=== PATIENT | male | born 1955 | race Caucasian/White ===

== ENCOUNTER 2020-06-19 01:03 | Outpatient (CLI) | payer MEDICARE, SELFPAY ==
[2020-06-19 20:28] LABS: SARS-CoV-2 RNA PCR Negative
== END 2020-06-19 01:04 | disposition home or self-care (01) ==
LOC: ANHCOVIDDT 01:03
PROVIDERS: PCP Physician Assistant; Visit Provider Internal Medicine Gastroenterology
DX: Z01.812 Encounter for preprocedural laboratory examination (principal); Z20.828 Contact with and (suspected) exposure to other viral communicable diseases
CPT/HCPCS: 87635; C9803; U0003

== ENCOUNTER 2020-06-22 01:03 | Day surgery (SDC) | payer MEDICARE, SELFPAY ==
[2020-06-16 10:23] VITALS: BMI 36.3
[2020-06-22 07:58] VITALS: BP 142/94; PULSE 84; RESP 16; TEMP 36.4; O2SAT 99; BMI 36.1
[2020-06-22] MEDS: LACTATED RINGERS 1,000 ML 150 ML IV CONT (08:15)
--- NOTE | 2020-06-22 08:26 | WPDANESEPPF ---
Anes - Initial Pre Proc Eval Procedure: Operation Date: 06/22/20 09:00 Proposed Procedures p Screening Colonoscopy - Joe Lemons MD Date/Time: 06/22/20 08:26 Surgeon: Joe Lemons MD Pre Op Diagnosis: Neoplasm Screening Patient Data Age: 65 Gender: M Height: 6 ft 1 in Weight: 124.3 kg Last Vital Signs Temp 36.4 C L 06/22/20 07:58 Pulse 84 06/22/20 07:58 Resp 16 06/22/20 07:58 BP 142/94 H 06/22/20 07:58 Pulse Ox 99 06/22/20 07:58 Allergies Allergy/AdvReac Type Severity Reaction Status Date / Time No Known Allergies Allergy Verified 06/22/20 07:57 Home Medications Medication Instructions Recorded Confirmed Type candesartan 16 mg PO DAILY 06/16/20 06/22/20 History aspirin 81 mg PO DAILY 06/22/20 06/22/20 History fhqovrgw-wgr-cbuqu-vit K-lycop 1 tablet PO DAILY 06/22/20 06/22/20 History [Men's Multivitamin] omega-3 fatty acids-vitamin E 1 cap PO TID 06/22/20 06/22/20 History [Fish Oil] Patient hx anesthesia problems: none Family hx anesthesia problems: none PMFSH Past Medical History Medical History Hypertension Family History Family History Sibling Hypertension Patient's brother is in good health Family history of coronary artery disease Father Family history of Parkinson's disease Hypertension Family history of heart disease in male family member before age 55 Mother Family history of obesity Hypertension Family history of pancreatic cancer Patient's mother is Father Family history of Parkinson's disease Family history of heart disease in male family member before age 55 Mother Family history of pancreatic cancer Social History Social History Smoking status: Never smoker Alcohol intake: never Substance use: never Substance use type: does not use Living arrangements: with family Spiritual care concerns: No Anes - Eval Final PreProcedure Day of Procedure 06/22/20 08:26 Patient weight: obese Heart: regular rate and rhythm Lungs: clear to auscultation Airway: Mallampati scale class II Neurological: alert and oriented Last oral intake: >/= 8 hours ASA classification: II Emergent: no Anesthetic plan: proceed Anesthesia type and monitoring: general GIVS and standard monitoring Informed Consent: The patient's anesthetic plan and its attendant risks and benefits were discussed with the patient/family/POA. Questions were solicited and answers provided to the satisfaction of the patient/family/POA.
--- NOTE | 2020-06-22 08:48 | WPDGICN ---
Assessment and Plan Assessment and plan (1) Encounter for screening colonoscopy: Code(s): Z12.11 - Encounter for screening for malignant neoplasm of colon Status: Acute Assessment and Plan: Screening colonoscopy advised because of patient's age. This report follow separately GI Consult Note Consult date/time: 06/22/20 08:48 HPI: Charli Mak Sr. is a 65 year old male seen in evaluation at the request of SHAZIA Chavarria. Patient presents for screening colonoscopy. Current weight appetite bowel movements normal. Patient denies abdominal pain. Family history noncontributory. Review of Systems Review of Systems: All systems reviewed & are unremarkable except as noted in HPI and below PMFSH Past Medical History Medical History Hypertension Family History Family History Sibling Hypertension Patient's brother is in good health Family history of coronary artery disease Father Family history of Parkinson's disease Hypertension Family history of heart disease in male family member before age 55 Mother Family history of obesity Hypertension Family history of pancreatic cancer Patient's mother is Father Family history of Parkinson's disease Family history of heart disease in male family member before age 55 Mother Family history of pancreatic cancer Social History Social History Smoking status: Never smoker Alcohol intake: never Substance use: never Substance use type: does not use Living arrangements: with family Spiritual care concerns: No Meds Home Medications and Allergies Home Medications Medication Instructions Recorded Confirmed Type candesartan 16 mg PO DAILY 06/16/20 06/22/20 History aspirin 81 mg PO DAILY 06/22/20 06/22/20 History ovivfbuw-mmd-tzvxf-vit K-lycop 1 tablet PO DAILY 06/22/20 06/22/20 History [Men's Multivitamin] omega-3 fatty acids-vitamin E 1 cap PO TID 06/22/20 06/22/20 History [Fish Oil] Allergies Allergy/AdvReac Type Severity Reaction Status Date / Time No Known Allergies Allergy Verified 06/22/20 07:57 Vital Signs Vital Signs - 24 hr 06/22/20 07:58 Temperature 97.5 F L Pulse Rate 84 Respiratory Rate 16 Blood Pressure 142/94 H Pulse Oximetry 99 Exam Narrative: Exam Narrative: Physical exam reveals patient be alert. Vital signs stable. HEENT exam unremarkable. Lungs are clear to auscultation and percussion. Heart is without murmur or extra sounds. Abdominal exam bowel sounds are present soft nontender with no organomegaly. Digital external rectal exam normal.
[2020-06-22 09:44] VITALS: BP 113/72; PULSE 69; RESP 18; O2SAT 94
[2020-06-22 09:54] VITALS: BP 108/71; PULSE 70; RESP 18; O2SAT 96
[2020-06-22 10:04] VITALS: BP 119/66; PULSE 68; RESP 18; O2SAT 98
== END 2020-06-22 10:30 | disposition home or self-care (01) ==
PROVIDERS: PCP Physician Assistant; Visit Provider Internal Medicine Gastroenterology
PROC: 0DJD8ZZ Inspection of Lower Intestinal Tract, Via Natural or Artificial Opening Endoscopic (ICD-10-PCS; CPT 45378; principal; 2020-06-22 09:00)
DX: Z12.11 Encounter for screening for malignant neoplasm of colon (principal); I10 Essential (primary) hypertension; K57.30 Diverticulosis of large intestine without perforation or abscess without bleeding; K64.8 Other hemorrhoids
CPT/HCPCS: G0121; J2704; J7120

== ENCOUNTER → 2022-02-07 13:19 | Outpatient (REF) | payer MEDICARE, SELFPAY | LOC: ANHLAB 13:19 | PROVIDERS: PCP Physician Assistant; Visit Provider Nurse Practitioner | DX: L82.1 Other seborrheic keratosis (principal) | CPT/HCPCS: 88305 ==

== ENCOUNTER 2023-06-22 12:21 | Inpatient (IN) | payer MEDICARE, SELFPAY ==
[2023-06-22] VITALS (16 sets, daily range): BP systolic 118–198; BP diastolic 51–115; PULSE 53–95; RESP 14–22; TEMP 36.5–36.8; O2SAT 92–100
--- NOTE | 2023-06-22 12:36 | ECG_ITS ---
Measurements Intervals [place] Rate: 85 P: 51 CT: 212 QRS: -12 QRSD: 98 T: 73 QT: 367 QTc: 437 Interpretive Statements SINUS RHYTHM WITH FIRST DEGREE AV BLOCK LEFT ATRIAL ENLARGEMENT INCOMPLETE RIGHT BUNDLE BRANCH BLOCK CANNOT RULE OUT SEPTAL INFARCT, AGE INDETERMINATE INFERIOR ST ELEVATION MYOCARIAL INJURY- ACUTE RECIPROCAL ST DEPRESSION IN HIGH LATERAL LEADS ABNORMAL ECG NO PREVIOUS ECG AVAILABLE FOR COMPARISON Electronically Signed On 06-22-2023 12:59:50 MAINTENANCE GROUNDMAN by Jared Choi D.O.
--- NOTE | 2023-06-22 12:39 | PC.NURSE ---
vorb for Aspirin 324 and Nitro 0.[address] Aguilera
--- NOTE | 2023-06-22 12:40 | ED.CHESTPAIN ---
HPI - Chest Pain General Chief Complaint: Chest Pain Stated Complaint: tightness in chest Time Seen by Provider: 06/22/23 12:33 History of Present Illness HPI narrative: Patient is a 68-year-old male who presents ER with chest pain. Began at 1030 today. Pressure center of his chest with some mild discomfort in his back. Associate with left arm heaviness. Began while he was cleaning up around his home. No diaphoresis or nausea or vomiting. No history of NM in the past. Has not had a stress test since he was in his 40s. Patient does have history of hypertension. Today he has severe range blood pressures in the 190s. Had similar symptoms yesterday but they resolved on their own but when they returned today and did not go away he thought he should come to the ER. Related Data Home Medications Medication Instructions Recorded Confirmed candesartan 16 mg tablet 16 mg PO DAILY 06/16/20 06/22/23 aspirin 81 mg tablet 81 mg PO DAILY 06/22/20 06/22/23 rqeplkar-dmorlodn-lzhfi acid 400 1 tablet PO DAILY 06/22/20 06/22/23 mcg-vit K 20 mcg-lycop 300 mcg tablet (Men's Multivitamin) omega-3 fatty acids-vitamin E 1 cap PO BID 06/22/20 06/22/23 1,000 mg capsule levothyroxine 88 mcg tablet 88 mcg PO DAILY 06/22/23 06/22/23 Allergies Allergy/AdvReac Type Severity Reaction Status Date / Time No Known Allergies Allergy Verified 06/22/23 14:47 Review of Systems Review of Systems: All systems reviewed & are unremarkable except as noted in HPI and below Constitutional: Constitutional: Reports no additional constitutional complaints ENT: Reports system reviewed and no additional complaints, except as documented Cardiovascular: Cardiovascular: Reports chest pain, Denies rapid heart rate and Denies radiating jaw, neck or arm pain Comments: Left arm heaviness Respiratory: Respiratory: Denies cough, Denies dyspnea and Denies wheezing Gastrointestinal: Gastrointestinal: Reports no additional gastrointestinal complaints PMFSH Past Medical History Medical History Hypertension Overweight Surgical History Surgical History No pertinent past surgical history Family History Family History Sibling Hypertension Patient's brother is in good health Family history of coronary artery disease Father Family history of Parkinson's disease Hypertension Family history of heart disease in male family member before age 55 Mother Family history of obesity Hypertension Family history of pancreatic cancer Patient's mother is Father Family history of Parkinson's disease Family history of heart disease in male family member before age 55 Mother Family history of pancreatic cancer Social History Social History Smoking status: Never smoker Alcohol intake: never Substance use: never Substance use type: does not use Lack of Transportation: No Lack of Food: Never True Current Housing: I Have Housing Concerned About Future Housing: No Difficulty Paying Gas/Electric Bills: No Difficulty Paying for Meds: No Currently Unemployed: No Education: Bachelor's Degree Difficulty w/ Childcare or Family Care: No Living arrangements: with family Spiritual care concerns: No Exam Narrative: GENERAL: Well-appearing, well-nourished, and in no acute distress. HEAD: Normocephalic, atraumatic. ENT: Mucous membranes moist. NECK: Supple. CHEST: Clear to auscultation. No respiratory distress. HEART: Regular rate and rhythm. Normal peripheral pulses. ABDOMEN: Soft, nontender, nondistended. EXTREMITIES: Normal range of motion. No edema. SKIN: Warm, dry, no rash. NEURO: Alert and oriented x3. PSYCH: Normal mood and affect. Course Course Emergency Course: STEMI activated. Cardiolo
--- NOTE | 2023-06-22 12:40 | PC.NURSE ---
[address] [facility] [address] [facility]
--- NOTE | 2023-06-22 12:44 | ECG_ITS ---
Measurements Intervals [place] Rate: 95 P: 56 ME: 196 QRS: -19 QRSD: 100 T: 82 QT: 346 QTc: 437 Interpretive Statements SINUS RHYTHM POSSIBLE LEFT ATRIAL ENLARGEMENT INCOMPLETE RIGHT BUNDLE BRANCH BLOCK DELAYED PRECORDIAL R/S TRANSITION INFERIOR ST ELEVATION MYOCARDIAL INFARCT, ACTUE POSTERIOR INFARCT, ACUTE ABNORMAL ECG COMPARED TO ECG 06/22/2023 12:30:41 NO SIGNIFICANT CHANGES Electronically Signed On 06-22-2023 15:13:04 PRESCHOOL SUBSTITUTE TEACHER by Jared Choi D.O.
--- NOTE | 2023-06-22 12:51 | PC.NURSE ---
1250 [facility] called for STEMI Standby ETA 35-45 min
--- NOTE | 2023-06-22 13:01 | PC.NURSE ---
chemical lab technician team down @0415 to take pt up for cath. no further orders at this time.
[2023-06-22 13:05] LABS: Basophils Percent Auto 0.4 % (0.2-1.2); Eosinophils Absolute Auto 0.1 K/mm3 (0-0.3); Eosinophils Percent Auto 1.2 % (0-4.4); Hematocrit 54.8 % (42.0-52.0); Hemoglobin 18.7 g/dL (14.0-18.0); Immature Granulocyte Absolute 0.02 K/mm3 (0.00-0.031); Immature Granulocyte Percent A 0.3 % (0-0.5); Lymphocytes Absolute Auto 1.36 K/mm3 (0.9-3.2); Lymphocytes Percent Auto 17.8 % (18.3-44.2); Mean Corpuscular HGB Conc 34.1 g/dl (32-36); Mean Corpuscular Hemoglobin 29.9 pg (26-34); Mean Corpuscular Volume 87.5 fl (80-100); Mean Platelet Volume 9.1 fl (7.4-10.4); Monocytes Absolute Auto 0.5 K/mm3 (0.1-0.6); Monocytes Percent Auto 6.4 % (2.6-8.5); Neutrophils Absolute Auto 5.6 K/mm3 (1.3-6.7); Neutrophils Percent Auto 73.9 % (45.5-73.1); Platelet Count Result 199 k/mm3 (150-375); Red Blood Count 6.26 M/mm3 (4.6-6.20); Red Cell Distribution Width 13.4 % (11.5-14.5); White Blood Count 7.6 K/mm3 (4.5-10.0)
[2023-06-22 13:09] LABS: Partial Thromboplastin Time 24.6 SECONDS (22.3-36.8); Prothrombin Time 13.2 Seconds (11.1-14.7)
--- NOTE | 2023-06-22 14:10 | ECG_ITS ---
Measurements Intervals [place] Rate: 70 P: ID: 0 QRS: -24 QRSD: 84 T: -11 QT: 384 QTc: 415 Interpretive Statements SINUS RHYTHM WITH SECOND DEGREE AV BLOCK, TYPE I INCOMPLETE RIGHT BUNDLE BRANCH BLOCK EARLY PRECORDIAL R/S TRANSITION INFERIOR INFARCT, RECENT ABNORMAL ECG COMPARED TO ECG 06/22/2023 12:48:36 SECOND DEGREE AV BLOCK NOW PRESENT Electronically Signed On 06-22-2023 15:15:40 POST ACUTE CARE REGISTERED NURSE by Jared Choi D.O.
--- NOTE | 2023-06-22 14:13 | PM.IMHP ---
H&P: HPI History of Present Illness Date/Time: 06/22/23 14:13 Chief Complaint: Chest pain Narrative: This is a 68 year old male with hypertension who presented with chest pain. EKG showing inferior STEMI. Patient reports he had intermittent chest pain yesterday afternoon, which resolved and he was able to sleep through the night without recurrence of chest pain. However around 10AM to 10:30AM this morning, he had recurrent chest pressure that was constant. Radiation to back. Left arm heaviness. ER activated STEMI. Review of Systems Review of Systems: All systems reviewed & are unremarkable except as noted in HPI and below (HPI) [facility] Past Medical History Medical History (Updated 06/22/23 @ 14:15 by Humera Tenorio MD) Hypertension Overweight Surgical History Surgical History No pertinent past surgical history Family History Family History Sibling Hypertension Patient's brother is in good health Family history of coronary artery disease Father Family history of Parkinson's disease Hypertension Family history of heart disease in male family member before age 55 Mother Family history of obesity Hypertension Family history of pancreatic cancer Patient's mother is Father Family history of Parkinson's disease Family history of heart disease in male family member before age 55 Mother Family history of pancreatic cancer Social History Social History Smoking status: Never smoker Alcohol intake: never Substance use: never Substance use type: does not use Living arrangements: with family Spiritual care concerns: No Meds Home Medications and Allergies Home Medications Medication Instructions Recorded Confirmed Type candesartan 16 mg tablet 16 mg PO DAILY 06/16/20 06/22/20 History aspirin 81 mg tablet 81 mg PO DAILY 06/22/20 06/22/20 History rmbicyjj-jfwczest-mmwux acid 400 1 tablet PO DAILY 06/22/20 06/22/20 History mcg-vit K 20 mcg-lycop 300 mcg tablet (Men's Multivitamin) omega-3 fatty acids-vitamin E 1 cap PO TID 06/22/20 06/22/20 History 1,000 mg capsule Allergies Allergy/AdvReac Type Severity Reaction Status Date / Time No Known Allergies Allergy Verified 06/22/23 12:37 Vital Signs Vital Signs - 24 hr 06/22/23 12:33 06/22/23 12:48 Temperature 36.8 C Pulse Rate 88 95 Respiratory Rate 16 Blood Pressure 198/115 H Pulse Oximetry 99 Exam Const: General: no acute distress HENMT: Mouth: Yes moist mucous membranes Eyes: General: appearance normal, both eyes and all related structures Sclera: sclerae normal Neck: Neck: supple Resp: Effort & Inspection: normal respiratory effort Cardio: Rate: regular rate Rhythm: regular rhythm Skin: General skin exam: normal color Neuro: Speech: normal speech Psych: Mental Status: mental status grossly normal Affect: normal affect H&P: Results Labs Labs: Short CBC 06/22/23 Range/Units 12:46 WBC 7.6 (4.5-10.0) K/mm3 Hgb 18.7 H (14.0-18.0) g/dL Hct 54.8 H (42.0-52.0) % Plt Count 199 (150-375) k/mm3 Assessment and Plan Assessment and plan (1) ST elevation (STEMI) myocardial infarction: Code(s): I21.3 - ST elevation (STEMI) myocardial infarction of unspecified site Status: Acute Assessment and Plan: Acute inferior STEMI with 100% occlusion of proximal RCA. S/p successful primary PCI with TL x 1. Doing well post PCI. Loaded with ASA in the ED. Continue with ASA 81mg once daily indefinitely. Loaded with Brilinta 180mg x 1 in the ED. Continue with Brilinta 90mg BID for at least 1 year. High-intensity statin. Check lipid panel, A1c. Echocardiogram. Telemetry monitoring. Referral to cardiac rehab placed. (2) Hypertension: Code(s): I10 - Essential (primary) hypertension
--- NOTE | 2023-06-22 14:17 | WPDMODSED ---
Moderate Sedation Note-Pt Data Patient Data Diagnosis: STEMI Present Complaint: Chest pressure Procedure to be performed/Plan: Primary PCI Allergies Allergy/AdvReac Type Severity Reaction Status Date / Time No Known Allergies Allergy Verified 06/22/23 12:37 Home Medications Medication Instructions Recorded Confirmed Type candesartan 16 mg tablet 16 mg PO DAILY 06/16/20 06/22/20 History aspirin 81 mg tablet 81 mg PO DAILY 06/22/20 06/22/20 History gttmjshb-dumcpbaz-nnflc acid 400 1 tablet PO DAILY 06/22/20 06/22/20 History mcg-vit K 20 mcg-lycop 300 mcg tablet (Men's Multivitamin) omega-3 fatty acids-vitamin E 1 cap PO TID 06/22/20 06/22/20 History 1,000 mg capsule Current Medications: Active Medications Aspirin (Aspirin 81 Mg Enteric Tablet) 81 mg PO QAM MALINDA Atorvastatin Calcium (Atorvastatin 40 Mg Tablet) 80 mg PO DAILY MALINDA Candesartan Cilexetil (Candesartan Cilexetil 16 Mg Tablet) 16 mg PO DAILY MALINDA Sodium Chloride (Normal Saline Iv) 1,000 mls @ 125 mls/hr IV CONT .Q8H ONE Stop: 06/22/23 22:09 Perflutren Lipid Microsphere (Perflutren Lipid Microspheres 1.5 Ml Vial Diluted To 10 Ml Total Volume) 0 ml IV PUSH ONCE PRN; Protocol PRN Reason: adequate visualization Stop: 06/25/23 14:11 Ticagrelor (Ticagrelor 90 Mg Tablet) 90 mg PO Q12HR MALINDA Sedation/Anesthesia: No previous sedation/anesthesia problems (including family history). [facility] Past Medical History Medical History Hypertension Overweight Surgical History Surgical History No pertinent past surgical history Family History Family History Sibling Hypertension Patient's brother is in good health Family history of coronary artery disease Father Family history of Parkinson's disease Hypertension Family history of heart disease in male family member before age 55 Mother Family history of obesity Hypertension Family history of pancreatic cancer Patient's mother is Father Family history of Parkinson's disease Family history of heart disease in male family member before age 55 Mother Family history of pancreatic cancer Social History Social History Smoking status: Never smoker Alcohol intake: never Substance use: never Substance use type: does not use Living arrangements: with family Spiritual care concerns: No Mod Sed Physical Exam Physical Exam Pre Procedural Exam: Normal: Appearance, Lungs, Heart Rate, Heart Rhythm, Neuro Exam, Abdomen, Extremities and Skin Hours since solid foods: 0 Hours since liquid intake: 0 Mallampati Classification: class III Internal Medicine - PN: Obj Da Vital Signs Vital Signs: Vital Signs - 24 hr 06/22/23 12:33 06/22/23 12:48 Temperature 36.8 C Pulse Rate 88 95 Respiratory Rate 16 Blood Pressure 198/115 H Pulse Oximetry 99 Meds/Results Medications: Active Medications Generic Name Dose Route Start Last Admin Trade Name Freq PRN Reason Stop Dose Admin Aspirin 81 mg 06/23/23 09:00 Aspirin 81 Mg Enteric Tablet PO QAM [facility] Atorvastatin Calcium 80 mg 06/23/23 09:00 Atorvastatin 40 Mg Tablet PO DAILY [facility] Candesartan Cilexetil 16 mg 06/23/23 09:00 Candesartan Cilexetil 16 Mg Tablet PO DAILY [facility] Sodium Chloride 1,000 mls @ 125 mls/hr 06/22/23 14:10 Normal Saline Iv IV CONT 06/22/23 22:09 .Q8H ONE Perflutren Lipid Microsphere 0 ml 06/22/23 14:11 Perflutren Lipid Microspheres 1.5 Ml Vial Diluted To 10 Ml Total Volume IV PUSH 06/25/23 14:11 ONCE PRN adequate visualization Protocol Ticagrelor 90 mg 06/22/23 21:00 Ticagrelor 90 Mg Tablet PO Q12HR MALINDA Labs 06/22/23 12:46 06/22/23 12:46 Labs: Laboratory Results - last 24 hr
--- NOTE | 2023-06-22 14:18 | WPDCARDPROC ---
Cardiac Cath Procedure Note Date of procedure:: 06/22/23 Performing physician:: CATHETERIZATION LABORATORY REPORT Procedure Date: 06/22/2023 Egg Pasteurizer: Humera Tenorio M.D., [facility]? Referring Physician: Mirza Aguilera M.D. ? Anesthesia: Versed and Fentanyl were ordered and given in my presence at 13:05, procedure ended at 14:04. Supervision of nurse monitored moderate sedation with Versed and Fentanyl was provided for 59 minutes. Total of Versed 1mg and Fentanyl 50mcg were administered by the Food Science Professor RN Renetta Orlando. Pre-op Diagnosis: Inferior STEMI Post-op Diagnosis: 1. Acute 100% occlusion of proximal RCA s/p successful IVUS-guided PCI with TL x 1 2. Mild-moderate non-obstructive coronary artery disease of the left coronary system. Procedure(s): 1. Moderate sedation 2. Ultrasound-guided access of the right radial artery 3. Coronary angiography 4. IVUS of RCA 5. PCI of the proximal RCA with TL x 1 Access Site: Right radial artery Brief History and Clinical Indications: Patient is a 68 year old male with hypertension who is referred for emergent cardiac cath for inferior STEMI. All risks, benefits and alternatives to left heart catheterization with or without percutaneous coronary intervention was discussed at length with the patient. Risk of complications including but not limited to bleeding, infection, arrhythmia, stroke, worsening kidney function, blood loss, groin hematoma, limb loss, emergency coronary artery bypass grafting, and even were discussed with the patient and all questions were answered. The patient understood and wished to proceed. Time out called, patient name, date of , medical record number, allergies, procedure performed, identify Egg Pasteurizer, patient and staff member concurred with accurate data, procedure carried on. Findings: LEFT HEART CATHETERIZATION FINDINGS: 1. Left main: The left main coronary artery is widely patent without any significant obstructive disease. 2. Left anterior descending: The proximal LAD has mild 10-20% disease. Remainder of the LAD has luminal irregularities. The first diagonal branch is a large caliber vessel with 50-60% stenosis in its proximal portion. The second diagonal branch is a small caliber vessel with moderate ostial stenosis. 3. Left circumflex: The left circumflex has luminal irregularities. The OM branch has mild disease in its proximal portion. 4. Right coronary artery: The RCA is the dominant vessel. The RCA is 100% occluded in its proximal portion. Description of Procedure and PCI: Informed consent signed and placed in the chart. Patient transferred to label operator room. Prepped and draped in usual sterile fashion. 2% lidocaine injected subcutaneously in right wrist area. 22-gauge venipuncture catheter used to access the right radial artery under ultrasound guidance. 6-FR slender sheath placed in right radial artery. Nitroglycerine and Verapamil were given intraarterial through the sheath. Versacore wire advanced under fluoroscopy 5F Tig 4 diagnostic catheter engaged Left Main Coronary Artery. Multiple orthogonal angiogram obtained and reviewed Angiomax used for anticoagulation. 6F FR 4 guide catheter was used to intubate the RCA. Angio showed 100% occlusion of proximal RCA. 0.014 Dawson coronary wire was passed in to the distal RCA. The lesion was pre-dilated with a 2.5mm x 15mm balloon inflated to high LUKE. Multiple balloon inflations done. The lesion was again pre-dilated with a 3.0mm x 15mm balloon inflated to high LUKE. Multiple balloon inflations done. The lesion was again pre-dilated with a 3.0mm x 15mm Angiosculpt balloon inflated to nominal pressure. Multiple balloon inflations done. IVUS catheter advanced distal to the lesion. Reference measurements obtained. A 4.0mm x 18mm Booking Angeliro TL was successfully deployed into proximal RCA. Intracoronary NTG was administered Follow-up angiograms showed an excellent result Co
--- NOTE | 2023-06-22 14:27 | ADMGEN ---
This patient, Charli Mak Sr., was admitted to Intensive Care Unit-7. Patient/family oriented to hospital policies and general routines including ID bracelet, bed and alarms, visiting hours, pain management, procedures, bathroom and other care routines, personal items, smoking policy, room service/diet, and visiting hours. Information on how to activate the Rapid Response Team has been discussed. Patient/Family are encouraged to report perceived risks to care and to ask questions if they do not understand what they are told or what they should do.
[2023-06-22 14:35] LABS: Hemoglobin A1C 5.3 % (<5.7)
--- NOTE | 2023-06-22 14:38 | WPDCNINT ---
Assessment and Plan Assessment and plan (1) ST elevation (STEMI) myocardial infarction: Code(s): I21.3 - ST elevation (STEMI) myocardial infarction of unspecified site Status: Acute Assessment and Plan: 06/22: Patient presented the ED with chest pressure, radiated to left arm and back along with shortness of breath and nausea. 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 This critical care time included obtaining a history; examining the patient; pulse oximetry; ordering and review of studies; arranging urgent treatment with development of a management plan; evaluation of patient's response to treatment; frequent reassessment; and discussions with other providers. It was exclusive of separately billable procedures and treating other patients and teaching time. Please see Assessment and Plan section and the rest of the note for further information on patient assessment and treatment This dictation may have been done utilizing a voice recognition system. Attempts have been made to correct errors. However, there may be uncorrected grammatical, spelling, and recognitions errors present. Color Expert Consult Note Consult date: 06/22/23 Reason for consult: Inferior STEMI status post cardiac catheterization with acute 100% occlusion of the proximal RCA status post successful IVUS guided PCI with TL x1 HPI: Charli Castillo Aubree Marti. is a 68 year old male with past medical history of essential hypertension, hypothyroidism, presented the ED with chest pressure which had been intermittent since yesterday afternoon, he was able to sleep through the night without recurrence of his chest pain however around 10:00 a.m. to 10:30 a.m. on the morning of 06/22/2023 he has recurring chest pressure which was constant, the to left arm and back. He also has some nausea and shortness of breath. EMS was called and he was brought to the [facility], code STEMI was called, patient was taken to the cardiac lab technician. With his systolic blood pressures with the 190s to 200s. Patient did have a right radial approach cardiac catheterization with acute 100% occlusion of the proximal RCA status post successful IVUS guided PCI with TL x1. Blood pressures have improved. Patient was transferred to the ICU for further management Patient seen and examined the ICU, remains awake, alert, oriented x3. Pleasant gentleman. Denies any chest pressure, radiation, shortness of breath, nausea, vomiting and diaphoresis. Hemodynamically stable. Patient denies any tobacco, alcohol or illicit drug use. Later states that he drinks with a glass of wine once a month or maybe in 2 -3 months. Review of Systems Review of Systems: All systems reviewed & are unremarkable except as noted in HPI and below PMFSH Past Medical History Medical History Hypertension Overweight Surgical H
[2023-06-22 15:11] LABS: Alanine Aminotransferase 60 U/L (6-50); Alkaline Phosphatase 51 U/L (38-126); Anion Gap 13 mmol/L (8-16); Aspartate Amino Transferase 53 U/L (17-59); Bilirubin,Total 1.2 mg/dL (0.2-1.3); Blood Urea Nitrogen 29 mg/dL (9-20); Calcium 10.2 mg/dL (8.4-10.2); Carbon Dioxide 23 mmol/L (22-30); Chloride 102 mmol/L (98-107); Cholesterol 203 mg/dL (0-200); Estimated CRCL calculation 59 ml/min; Estimated Glomerular Filt Rate 50; Glucose 123 mg/dL (65-110); HDL Direct 37 mg/dL; Potassium 3.9 mmol/L (3.4-5.0); Sodium 138 mmol/L (137-145); Triglycerides 144 mg/dL (<150)
[2023-06-22 15:22] LABS: LDL Cholesterol Direct 131 mg/dL
[2023-06-22 15:32] LABS: Troponin I 0.966 ng/mL (0.000-0.034)
[2023-06-22] MEDS: SODIUM CHLORIDE 0.9% IV 1,000 ML 125 ML IV CONT (18:27)
[2023-06-22] MEDS: TICAGRELOR 90 MG TABLET PO (21:04)
--- NOTE | 2023-06-22 22:22 | PC.NURSE ---
Patient heart rate dropping into the 30's and sustaining as Second Degree Type I. Dr. Ferreira notified and requested RN to call cardiology. Cardiology notified and no medical intervention necessary due to type of rhythm identified. Will continue to monitor.
[2023-06-23] VITALS (10 sets, daily range): BP systolic 100–147; BP diastolic 60–99; PULSE 51–105; RESP 12–22; TEMP 36.4–36.6; O2SAT 92–97
--- NOTE | 2023-06-23 | ECHO_ITS ---
Patient Info Name: Charli Mak Age: 68 years : 1955 Gender: Male Ht: 73 in Wt: 246 lbs BSA: 2.43 m2 HR: 76 bpm BP: 147 / 96 mmHg Heart Rhythm: Sinus Rhythm Technical Quality: Fair Exam Date: 06/23/2023 7:50 AM Exam Location: Echo Lab Patient Status: Inpatient Admit Date: 06/22/2023 Staff Ordering Physician: Humera Tenorio MD (alice/valerie) Air Duct Mechanic: Bhavya Key RDCS Attending Provider: Alli Hammond MD Referring Physician: Jona TERRELL; Exam Type: CA echo dop color flow w con Study Info Indications - STEMI Complete two-dimensional, color flow and Doppler transthoracic echocardiogram is performed with contrast to opacify the left ventricle and to improve the deliniation of the left ventricle endocardial borders. Contrast/Agitated Saline Contrast/Ag. Saline: Definity Amount: 2.00 ml Administered By: Bhavya Key RDCS Existing IV Access: Yes IV Access Condition: patent with no signs of infiltration Summary 1. Normal, vigorous appearing left ventricular systolic function without significant wall motion abnormality. 2. Mildly sclerotic but not stenotic aortic valve. 3. Mild mitral annular calcification. Left Ventricle Left ventricular chamber dimension is normal. Left ventricular systolic function is normal, estimated at >70%. The left ventricular diastolic function is grade I diastolic dysfunction. Right Ventricle Right ventricular chamber dimension is normal. Left Atria Left atrial chamber dimension is normal. Right Atria Right atrial chamber dimension is normal. Aortic Valve The aortic valve is normal. Pulmonic Valve The pulmonic valve is not well visualized. Mitral Valve The mitral valve has normal leaflets. The mitral valve annulus is mildly calcified. Tricuspid Valve The tricuspid valve leaflets are normal. Pericardium/Pleural The pericardium appears normal. Aorta The aortic root size at the sinus of Valsalva is normal. Left Ventricular Outflow Tract Name Value Normal LVOT 2D LVOT Diameter 1.99 cm LVOT Doppler LVOT Peak Gradient 6 mmHg LVOT Mean Gradient 3 mmHg LVOT VTI 20.42 cm LVOT VTI/AV VTI Ratio 0.96 LVOT Stroke Volume 63.44 ml LVOT CO 5.40 l/min LVOT CI 2.22 L/min/m2 Pulmonic Valve Name Value Normal RVOT Doppler RVOT Peak Gradient 3 mmHg PV Doppler PV Peak Gradient 5 mmHg Mitral Valve Name Value Normal MV Doppler
[2023-06-23 03:32] LABS: Basophils Percent Auto 0.4 % (0.2-1.2); Eosinophils Absolute Auto 0.1 K/mm3 (0-0.3); Eosinophils Percent Auto 1.4 % (0-4.4); Hematocrit 53.3 % (42.0-52.0); Hemoglobin 17.7 g/dL (14.0-18.0); Immature Granulocyte Absolute 0.04 K/mm3 (0.00-0.031); Immature Granulocyte Percent A 0.5 % (0-0.5); Lymphocytes Absolute Auto 1.12 K/mm3 (0.9-3.2); Lymphocytes Percent Auto 13.9 % (18.3-44.2); Mean Corpuscular HGB Conc 33.2 g/dl (32-36); Mean Corpuscular Hemoglobin 29.7 pg (26-34); Mean Corpuscular Volume 89.4 fl (80-100); Monocytes Absolute Auto 0.6 K/mm3 (0.1-0.6); Monocytes Percent Auto 7.2 % (2.6-8.5); Neutrophils Absolute Auto 6.2 K/mm3 (1.3-6.7); Neutrophils Percent Auto 76.6 % (45.5-73.1); Platelet Count Result 196 k/mm3 (150-375); Red Blood Count 5.96 M/mm3 (4.6-6.20); Red Cell Distribution Width 13.6 % (11.5-14.5); White Blood Count 8.1 K/mm3 (4.5-10.0)
[2023-06-23 03:48] LABS: Alanine Aminotransferase 53 U/L (6-50); Albumin Level 4.1 g/dL (3.5-5.1); Alkaline Phosphatase 36 U/L (38-126); Anion Gap 7 mmol/L (8-16); Aspartate Amino Transferase 65 U/L (17-59); Blood Urea Nitrogen 21 mg/dL (9-20); Calcium 9.2 mg/dL (8.4-10.2); Carbon Dioxide 28 mmol/L (22-30); Chloride 104 mmol/L (98-107); Estimated CRCL calculation 59 ml/min; Estimated Glomerular Filt Rate 50; Glucose 94 mg/dL (65-110); Phosphorus 3.1 mg/dL (2.5-4.5); Potassium 4.1 mmol/L (3.4-5.0); Sodium 139 mmol/L (137-145)
[2023-06-23] MEDS: LEVOTHYROXINE SODIUM 88 MCG TABLET PO (06:32)
[2023-06-23] MEDS: PERFLUTREN LIPID MICROSPHERES 1.5 ML VIAL DILUTED TO 10 ML TOTAL VOLUME IV PUSH (08:26)
[2023-06-23] MEDS: CANDESARTAN CILEXETIL 16 MG TABLET PO (08:52)
[2023-06-23] MEDS: ATORVASTATIN 40 MG TABLET 80 MG PO (08:52)
[2023-06-23] MEDS: ASPIRIN 81 MG ENTERIC TABLET PO (08:52)
[2023-06-23] MEDS: TICAGRELOR 90 MG TABLET PO (08:52)
--- NOTE | 2023-06-23 09:08 | IVDEFINITY ---
Prior to administration of IV Definity the patient was educated on the risks and benefits of the imaging enhancing agent including potential adverse side effects. The patient verbalized understanding. Allergies were verified. No exclusion criteria were identified and at least one of the following inclusion criteria were met: 1) physician request, 2) patient technically difficult to image (per the [employer] Echocardi[employer] guidelines of two or more segments not discernable within the apical view), or 3) questionable left ventricular function. ?
--- NOTE | 2023-06-23 11:50 | WPDINTPN ---
Progress Note: A&P Assessment and Plan (1) ST elevation (STEMI) myocardial infarction: Code(s): I21.3 - ST elevation (STEMI) myocardial infarction of unspecified site Status: Acute Assessment and Plan: 06/22: Patient presented the ED with chest pressure, radiated to left arm and back along with shortness of breath and nausea. -Patient did have a right radial approach cardiac catheterization with acute 100% occlusion of the proximal RCA status post successful IVUS guided PCI with TL x1 -continue aspirin, atorvastatin, ticagrelor, candesartan -cardiology following the patient Patient did have an episode of second-degree type 1 block overnight with heart rate dipped in the 30s just once. And that after his heart rate has been slightly bradycardic in the 50s and 60s and this morning he has been in the 90s and 100s. 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 -blood pressures are stable (3) Hypothyroidism: Code(s): E03.9 - Hypothyroidism, unspecified Status: Acute Assessment and Plan: Continue levothyroxine Plan DVT prophylaxis: Status post cardiac catheterization Stress ulcer prophylaxis: Not indicated Nutrition: Heart healthy diet Code Status: Full code Critical Care Time Spent: 32 minutes Okay to transfer the ICU Due to a high probability of clinically significant, life threatening deterioration, the patient required my highest level of preparedness to intervene emergently and I personally spent this critical care time directly and personally managing the patient. This critical care time included obtaining a history; examining the patient; pulse oximetry; ordering and review of studies; arranging urgent treatment with development of a management plan; evaluation of patient's response to treatment; frequent reassessment; and discussions with other providers. It was exclusive of separately billable procedures and treating other patients and teaching time. Please see Assessment and Plan section and the rest of the note for further information on patient assessment and treatment This dictation may have been done utilizing a voice recognition system. Attempts have been made to correct errors. However, there may be uncorrected grammatical, spelling, and recognitions errors present. Subjective Date/time seen: 06/23/23 11:50 Interval history: Reason for consult: Inferior STEMI status post cardiac catheterization with acute 100% occlusion of the proximal RCA status post successful IVUS guided PCI with TL x1 06/23/2023: Patient seen and examined ICU, is awake, alert, oriented, pleasant. Denies any chest pressure/pain, shortness a breath, diaphoresis, nausea, vomiting, abdominal pain. Patient did have an episode of bradycardia 30s last night, the bedside RN did discuss with the turpentine farmer on-call. Patient has been in the 50s and 60s on and was tachycardic 100s. Most likely related to second-degree AV block type I. Urine output has been adequate, patient has been hemodynamically stable, afebrile. Right radial site without evidence of ecchymosis or hematoma Review of Systems Review of Systems: All systems reviewed & are unremarkable except as noted in HPI and below Exam Narrative: General: Pleasant gentleman in no acute distress HEENT:? Pupils equal and reactive, sclera is clear Neck:? Supple Respiratory:? Clear to auscultation bilaterally, no wheezing, no rales Cardiac:? S1-S2 is normal, normal rate and rhythm Abdomen:? Soft, nontender, nondistended, normoactive bowel sounds Extremities:? Right upper extremity cardiac catheterization site without evidence of ecchymosis or hematoma. Right radial pulse is dopp
--- NOTE | 2023-06-23 12:42 | PM.DS ---
DS: Admitting Diagnosis Discharge Date 06/23/2023 Admitting Diagnosis chest pain DS: Discharge Diagnosis Discharge Diagnosis (1) ST elevation (STEMI) myocardial infarction: Code(s): I21.3 - ST elevation (STEMI) myocardial infarction of unspecified site Status: Acute Assessment and Plan: Acute inferior STEMI with 100% occlusion of proximal RCA. S/p successful primary PCI with TL x 1. Doing well post PCI. Loaded with ASA in the ED. Continue with ASA 81mg once daily indefinitely. Loaded with Brilinta 180mg x 1 in the ED. Continue with Brilinta 90mg BID for at least 1 year. High-intensity statin. Had some intermittent 2nd degree AVB type I with no significant bradycardia post PCI. Will hold off on beta indy for now because of this Echocardiogram pending Referral to cardiac rehab placed. (2) Hypertension: Code(s): I10 - Essential (primary) hypertension Status: Acute Assessment and Plan: Initally hypertensive on arrival to ED with SBP in the 190s, however, normotensive after PCI. Resume home Candesartan. DS: Summary Hospital Course Hospital Course: Presented to hospital with chest pain and was emergently taken to the cardiac cardiac catheterization technologist where he was found to have a 100% blockage of the RCA. This was treated with placement of TL x 1. No post-procedural complications. Time Spent with Patient Time attestation: Total time spent providing and/or coordinating discharge services: 57 minutess Exam Const: General: no acute distress HENMT: Mouth: Yes moist mucous membranes Eyes: General: appearance normal, both eyes and all related structures Sclera: sclerae normal Neck: Neck: supple Resp: Effort & Inspection: normal respiratory effort Cardio: Rate: regular rate Rhythm: regular rhythm Skin: General skin exam: normal color Neuro: Speech: normal speech Psych: Mental Status: mental status grossly normal Affect: normal affect DS: Data Data Completed and Pending Labs on day of discharge: Labs from last 24 hours 06/23/23 06/22/23 06/22/23 03:15 18:38 15:32 WBC 8.1 RBC 5.96 Hgb 17.7 Hct 53.3 H MCV 89.4 MCH 29.7 MCHC 33.2 RDW 13.6 Plt Count 196 MPV 9.0 Immature Gran % (Auto) 0.5 Neut % (Auto) 76.6 H Lymph % (Auto) 13.9 L [place] % (Auto) 7.2 Eos % (Auto) 1.4 Baso % (Auto) 0.4 Lymph # (Auto) 1.12 [place] # (Auto) 0.6 Eos # (Auto) 0.1 Baso # (Auto) 0.0 Abs Immat Gran (auto) 0.04 H Absolute Neuts (auto) 6.2 Absolute Nucleated RBC 0.0 Nucleated RBC % 0.0 PT INR APTT Sodium 139 Potassium 4.1 Chloride 104 Carbon Dioxide 28 Anion Gap 7 L BUN 21 H Creatinine 1.40 H Estim Creat Clear Calc 59 Estimated GFR 50 L Glucose 94 Hemoglobin A1c Calcium 9.2 Phosphorus 3.1 Magnesium 2.0 Total Bilirubin 1.0 AST 65 H ALT 53 H Alkaline Phosphatase 36 L Troponin I 5.280 H* D 1.850 H* D Total Protein 7.0 Albumin 4.1 Triglycerides Cholesterol LDL Cholesterol Direct HDL Direct Blood Type A Negative Antibody Screen Negative 06/22/23 06/22/23 12:46 12:45 WBC 7.6 RBC 6.26 H Hgb 18.7 H Hct 54.8 H MCV 87.5 MCH 29.9 MCHC 34.1 RDW 13.4 Plt Count 199 MPV 9.1 Immature Gran % (Auto) 0.3 Neut % (Auto) 73.9 H Lymph % (Auto) 17.8 L [place] % (Auto) 6.4 Eos % (Auto) 1.2 Baso % (Auto) 0.4 Lymph # (Auto) 1.36 [place] # (Auto) 0.5 Eos # (Auto) 0.1 Baso # (Auto) 0.0 Abs Immat Gran (auto) 0.02 Absolute Neuts (auto) 5.6 Absolute Nucleated RBC 0.0 Nucleated RBC % 0.0 PT 13.2 INR 1.0 APTT 24.6 Sodium 138 Potassium 3.9 Chloride 102 Carbon Dioxide 23 Anion Gap 13 BUN 29 H Creatinine 1.40 H Estim Creat Clear Calc 59 Estimated GFR 50 L Glucose 123 H Hemoglobin A1c 5.3 Calcium 10.2 Phosphorus Magnesium Total Bilirubin 1.2 AST 53
== END 2023-06-23 15:55 | disposition home or self-care (01) | DRG 322 ==
LOC: ANHED 13:00 → ANHICU 06-23 09:32
PROVIDERS: Internal Medicine; Admitting Provider Internal Medicine; Emergency Provider Emergency Medicine; PCP Physician Assistant; Visit Provider Nurse Practitioner
PROC: 4A023N7 Measurement of Cardiac Sampling and Pressure, Left Heart, Percutaneous Approach (ICD-10-PCS; CPT 93454; principal; 2023-06-22 12:45)
PROC: 4A023N7 Measurement of Cardiac Sampling and Pressure, Left Heart, Percutaneous Approach (ICD-10-PCS; 2023-06-22 12:45)
PROC: 4A023N7 Measurement of Cardiac Sampling and Pressure, Left Heart, Percutaneous Approach (ICD-10-PCS; 2023-06-22 12:45)
DX: I21.19 ST elevation (STEMI) myocardial infarction involving other coronary artery of inferior wall (principal); I25.119 Atherosclerotic heart disease of native coronary artery with unspecified angina pectoris; I10 Essential (primary) hypertension; I44.1 Atrioventricular block, second degree; E03.9 Hypothyroidism, unspecified; Z28.21 Immunization not carried out because of patient refusal; Z79.82 Long term (current) use of aspirin
CPT/HCPCS: 36415; 80053; 80061; 83036; 83735; 84100; 84484; 85025; 85610; 85730; 86850; 86900; 86901; 92978; 93005; 93454; 99285; A9270; C1725; C1753; C1769; C1874; C1887; C1894; C8929; C9606; J0583; J1644; J2250; J2305; J3010; J7030; J7040; Q9957

== ENCOUNTER 2023-09-18 09:48 | Outpatient (CLI) | payer MEDICARE, SELFPAY ==
--- NOTE | 2023-10-09 16:20 | WPDSLEEPSTUD ---
Sleep Study Date of Study: 09/18/23 Ordering Provider: Hanane Chavez MD Interpreting Physician: Josephine Strickland DO Sleep Study Type: Polysomnogram Height: 1.85 m Weight: 113.398 kg Body Mass Index: 33.0 Neck Circumference (inches): 16 [place]: 7 Reason for Sleep Study Heart arrhythmia seen on Holter monitor. 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 The patient denies awakening from sleep short of breath. He denies awakening at night with heartburn, belching or cough. He rarely snores and is never loud enough others complain. He denies having trouble sleeping when he has a cold. He denies waking up gasping for air throughout the night. He denies having breathing problems at night observed by himself or others. He denies sweating excessively at night. He denies having heart palpitations or irregular heartbeats during the night. He rarely falls asleep during the day and never falls asleep while driving. He denies sleep paralysis and cataplexy. He denies having trouble at school or work due to sleepiness. He rarely experiences vivid dreamlike scenes upon awakening or falling asleep. He denies feeling afraid of going to sleep. He rarely has nightmares. He occasionally remembers his dreams. He rarely has thoughts racing through his mind. He denies feeling sad or depressed. He rarely has anxiety. He denies having muscular tension. He denies noticing parts of his body jerk. He rarely kicks during the night. He rarely has crawling and aching feelings in his legs and rarely has leg pain during the night. He rarely grinds his teeth during sleep but never awakens with morning jaw pain. He is rarely bothered by pain during the day but never awakened by pain during the night. He rarely wakes up feeling stiff in the morning. He denies waking up with sore or achy muscles. He denies waking up with pain in the neck, spine and other joints. He goes to bed at 10:00 p.m. on both weekdays and weekends. It takes him less than 10 minutes to fall asleep. He wakes up twice throughout the night to urinate and is able to fall back asleep within 10 minutes. He wakes up at 6:30 a.m. on both weekdays and weekends. He typically gets 8 hours of sleep per night. He does not stay in bed after waking up in the morning. He currently lives with his . He denies consuming any caffeinated beverages within 2 hours of bedtime. He denies engaging in physical exercise before bedtime. He will read watch television before falling asleep. He denies taking naps in afternoon or the evening. He consumes 3 cups of caffeinated beverage per day. He denies tobacco, alcohol and recreational drug use. [facility] Past Medical History Medical History Hypertension Overweight Surgical History Surgical History No pertinent past surgical history Family History Family History Sibling Patient's brother is in good health Family history of coronary artery disease Hypertension Father Family history of heart disease in male family member before age 55 Family history of Parkinson's disease Hypertension Mother Patient's mother is Family history of obesity Family history of pancreatic cancer Hypertension Father Family history of heart disease in male family member before age 55 Family history of Parkinson's disease Mother Family history of pancreatic cancer Son Pancreatic cancer Social History Social History Smoking status: Never smoker Alcohol intake: never Substance use:
[2023-10-09 16:22] VITALS: BMI 33.0
== END 2023-09-19 06:38 | disposition home or self-care (01) ==
LOC: ANHCSM 09:49
PROVIDERS: PCP Physician Assistant; Visit Provider Internal Medicine Critical Care Medicine
DX: G47.10 Hypersomnia, unspecified (principal); I49.9 Cardiac arrhythmia, unspecified
CPT/HCPCS: 95811

== ENCOUNTER 2023-11-15 08:30 | Outpatient (RCR) | payer MEDICARE, SELFPAY | END 2023-11-15 10:00 | disposition home or self-care (01) | LOC: ANHCPREHAB 08:30 | PROVIDERS: PCP Physician Assistant; Visit Provider Internal Medicine | DX: Z95.5 Presence of coronary angioplasty implant and graft (principal) | CPT/HCPCS: 93798 ==

== ENCOUNTER 2024-05-23 15:36 | Emergency (ER) | payer MEDICARE, SELFPAY ==
--- NOTE | ~2024-05-23 | CT_ITS ---
EXAMINATION: CT brain wo con DATE: 05/23/2024 16:03 INDICATION: Memory lapse. Cerebrovascular accident. TECHNIQUE: Computed tomography (CT) of the head was performed without intravenous contrast. The mA wa s adjusted according to patient size. Iterative reconstruction technique was employed. The dose-lengt h product was 681.00 mGy-cm. COMPARISON: None FINDINGS: There are scattered areas of low attenuation in the cerebral white matter, which is within normal limits for the patient's age. There is no intracranial hemorrhage, acute infarction, or abnorm al intracranial mass lesion. The ventricles are normal in size. There is mild mucosal thickening para nasal sinuses. The mastoid air cells are normal. The orbits are normal. IMPRESSION: 1. Normal aging brain. I called this result to Dr. Hoyt. Reviewed, dictated and finalized at location A.
--- NOTE | ~2024-05-23 | XR_ITS ---
EXAMINATION: XR chest 1V portable DATE: 05/23/2024 16:14 INDICATION: Cerebrovascular accident. TECHNIQUE: A single frontal view of the chest was obtained. COMPARISON: None. FINDINGS: There is mild atelectasis in left lower lung zone. No pleural effusion or pneumothorax. The heart size is normal. IMPRESSION: 1. Mild atelectasis in left lower lung zone. Reviewed, dictated and finalized at location A.
--- NOTE | ~2024-05-23 | CT_ITS ---
EXAMINATION: CTA brain carotid DATE: 05/23/2024 16:06 INDICATION: Memory loss. Cerebrovascular accident. TECHNIQUE: Computed tomographic angiography (CTA) of the head was performed with 100 mL Omnipaque-350 intravenous contrast. CTA of the neck was performed with intravenous contrast. Automated exposure co ntrol and iterative reconstruction technique were employed. The dose-length product was 1098.00 mGy-c m. Maximum intensity projection and volume rendered 3D-reconstructions were created by the technologi st on a separate workstation. COMPARISON: Head CT 05/23/2024 FINDINGS: HEAD CTA: There are scattered areas of low attenuation in the cerebral white matter, which is within normal limits for the patient's age. There is no intracranial hemorrhage, acute infarction, or abnorm al intracranial mass lesion. The ventricles are normal in size. The orbits are normal. There is mild mucosal thickening in the paranasal sinuses. The mastoid air cells are normal. The vertebral arteries are codominant. There is no significant stenosis of basilar artery or the posterior cerebral arterie s. There is no significant stenosis of the intracranial internal carotid arteries or anterior or midd le cerebral arteries. Anterior communicating artery is normal. The posterior communicating arteries a re normal. There is no aneurysm. NECK CTA: There are no pathologically enlarged lymph nodes. There is no significant stenosis of the v ertebral arteries. There is plaque in the proximal internal carotid. There is 0% stenosis of the prox imal right internal carotid artery relative to normal distal artery lumen diameter (NASCET criteria). There is 0% stenosis of the proximal left internal carotid artery relative to normal distal artery l umen diameter. There are nodules in the thyroid measuring up to 5 mm, likely not clinically significa nt. There is severe cervical spondylosis. IMPRESSION: 1. Normal aging brain. 2. No aneurysm or significant intracranial arterial stenosis. 3. 0% stenosis of the proximal internal carotid arteries relative to normal distal artery lumen diame ters (NASCET criteria). Reviewed, dictated and finalized at location A. IMPRESSION: 1. Normal aging brain. 2. No aneurysm or significant intracranial arterial stenosis. 3. 0% stenosis of the proximal internal carotid arteries relative to normal dis eder artery lumen diameters (NASCET criteria).
[2024-05-23 15:43] VITALS: BP 138/91; PULSE 95; RESP 14; TEMP 36.4; O2SAT 95
--- NOTE | 2024-05-23 15:53 | ECG_ITS ---
Test Date: 2024-05-23 17:15:58 Measurements Intervals [place] Rate: 106 P: 0 [place]: 0 QRS: -27 QRSD: 77 T: 13 QT: 404 QTc: 538 Interpretive Statements SINUS RHYTHM WITH FIRST-DEGREE AV BLOCK BORDERLINE LEFT AXIS DEVIATION [QRS AXIS < -20] POSSIBLE RIGHT VENTRICULAR CONDUCTION DELAY [RSR (QR) IN V1/V2] NONSPECIFIC T-WAVE ABNORMALITY ABNORMAL ECG No previous ECG available for comparison Electronically Signed On 05-24-2024 12:28:47 CDT by Renzo Maher M.D.
[2024-05-23 15:56] LABS: Glucose Point of Care 119 mg/dl (65-105)
[2024-05-23 16:01] LABS: Estimated CRCL calculation 55 ml/min; Estimated Glomerular Filt Rate 46
--- NOTE | 2024-05-23 16:09 | ED.NEUROSD ---
HPI - Neuro Symptoms/Deficit General Chief Complaint: Neuro Symptoms/Deficit Stated Complaint: LKW 1400 Time Seen by Provider: 05/23/24 15:49 History of Present Illness HPI Narrative: Patient went to his normal morning appointment for testosterone shot, came home, around 2:00 p.m., got upset and told his that he missed his appointment. Reiterated this two separate times. No difficulty with speech, numbness or weakness. Has now recovered his memory. Related Data Home Medications Medication Instructions Recorded Confirmed candesartan 16 mg tablet 16 mg PO DAILY 06/16/20 11/08/23 aspirin 81 mg tablet 81 mg PO DAILY 06/22/20 11/08/23 zcyxvltr-rhgszaov-rhwiw acid 400 1 tablet PO DAILY 06/22/20 11/08/23 mcg-vit K 20 mcg-lycop 300 mcg tablet (Men's Multivitamin) omega-3 fatty acids-vitamin E 1 cap PO BID 06/22/20 11/08/23 1,000 mg capsule levothyroxine 88 mcg tablet 88 mcg PO DAILY 06/22/23 11/08/23 testosterone cypionate 200 mg/mL 200 mg IM ONCE 09/05/23 11/08/23 intramuscular oil Allergies Allergy/AdvReac Type Severity Reaction Status Date / Time No Known Allergies Allergy Verified 05/23/24 16:18 Review of Systems Review of Systems: All systems reviewed & are unremarkable except as noted in HPI and below PMFSH Past Medical History Medical History Hypertension Overweight Surgical History Surgical History No pertinent past surgical history Family History Family History Sibling Patient's brother is in good health Family history of coronary artery disease Hypertension Father Family history of heart disease in male family member before age 55 Family history of Parkinson's disease Hypertension Mother Patient's mother is Family history of obesity Family history of pancreatic cancer Hypertension Father Family history of heart disease in male family member before age 55 Family history of Parkinson's disease Mother Family history of pancreatic cancer Son Pancreatic cancer Social History Social History Smoking status: Never smoker Alcohol intake: never Substance use: never Substance use type: does not use Lack of Transportation: No Lack of Food: Never True Current Housing: I Have Housing Concerned About Future Housing: No Difficulty Paying Gas/Electric Bills: No Difficulty Paying for Meds: No Currently Unemployed: No Education: Bachelor's Degree Difficulty w/ Childcare or Family Care: No Living arrangements: with family Spiritual care concerns: No Exam Narrative: EXAMINATION OF ORGAN SYSTEMS/BODY AREAS: Constitutional: Vital signs per nursing GENERAL:[No acute distress, non-toxic appearing.] HEAD: Normal with no signs of head trauma. EYES: EOMI, conjunctiva normal, PERRL ENT: Hearing grossly intact LUNGS: Nonlabored breathing. HEART: [Regular rate and rhythm] ABD: [Soft], [nontender to palpation] EXT: Normal range of motion SKIN: [No rashes or lesions.] NEURO: [Alert and oriented x 3. No upper or lower extremity weakness, no sensory deficit, CN2-12 intact, finger to nose intact, clear speech, normal gait] PSYCH: Normal affect Course Vital Signs Vital signs: Vital Signs Temperature 97.5 F L 05/23/24 15:43 Pulse Rate 95 05/23/24 15:43 Respiratory Rate 14 05/23/24 15:43 Blood Pressure 138/91 H 05/23/24 15:43 Pulse Oximetry 95 05/23/24 15:43 Oxygen Delivery Room Air 05/23/24 15:43 Temperature 97.5 F L 05/23/24 15:43 Pulse Rate 78 05/23/24 16:10 Respiratory Rate 14 05/23/24 16:10 Blood Pressure 161/85 H 05/23/24 16:10 Pulse Oximetry 99 05/23/24 16:10 Oxygen Delivery Room Air 05/23/24 15:43 MDM - Neuro Symptoms/Deficit MDM Narrative Med
[2024-05-23 16:10] VITALS: BP 161/85; PULSE 78; RESP 14; O2SAT 99
[2024-05-23 16:17] LABS: Basophils Percent Auto 0.3 % (0.2-1.2); Eosinophils Absolute Auto 0.1 K/mm3 (0-0.3); Eosinophils Percent Auto 0.7 % (0-4.4); Hematocrit 51.3 % (42.0-52.0); Hemoglobin 17.9 g/dL (14.0-18.0); Immature Granulocyte Absolute 0.02 K/mm3 (0.00-0.031); Immature Granulocyte Percent A 0.3 % (0-0.5); Lymphocytes Absolute Auto 1.15 K/mm3 (0.9-3.2); Mean Corpuscular HGB Conc 34.9 g/dl (32-36); Mean Corpuscular Volume 88.9 fl (80-100); Mean Platelet Volume 9.3 fl (7.4-10.4); Monocytes Absolute Auto 0.5 K/mm3 (0.1-0.6); Monocytes Percent Auto 5.9 % (2.6-8.5); Neutrophils Percent Auto 77.8 % (45.5-73.1); Platelet Count Result 199 k/mm3 (150-375); Red Blood Count 5.77 M/mm3 (4.6-6.20); Red Cell Distribution Width 13.3 % (11.5-14.5); White Blood Count 7.7 K/mm3 (4.5-10.0)
[2024-05-23 17:00] VITALS: BP 167/81; PULSE 89; RESP 18; O2SAT 94
[2024-05-23 18:00] VITALS: BP 137/93; PULSE 89; RESP 20; O2SAT 94
[2024-05-23 18:06] LABS: INR 0.9; Prothrombin Time 12.9 Seconds (11.1-14.7)
[2024-05-23 18:07] LABS: Partial Thromboplastin Time 23.8 Seconds (22.3-36.8)
[2024-05-23 18:12] LABS: Add Urine Microscopic? NO; Appearance Urine Clear (Clear); Bilirubin Urine Negative (Negative); Blood Urine Negative (Negative); Color Urine Yellow (Yellow); Glucose Urine UA Negative (Negative); Ketones Urine Negative (Negative); Leukocyte Esterase Ur Negative LEU/UL (Negative); Nitrate Urine Negative (Negative); Protein Urine Negative (Negative); Specific Grav Ur 1.035 (1.001-1.035); Urobilinogen Urine 0.2 mg/dL (<2.0)
[2024-05-23 18:13] LABS: Alanine Aminotransferase 55 U/L (6-50); Albumin Level 4.9 g/dL (3.5-5.1); Alkaline Phosphatase 48 U/L (38-126); Anion Gap 11 mmol/L (4-12); Aspartate Amino Transferase 69 U/L (17-59); Bilirubin,Total 1.1 mg/dL (0.2-1.3); Blood Urea Nitrogen 39 mg/dL (9-20); Calcium 9.9 mg/dL (8.4-10.2); Carbon Dioxide 21 mmol/L (22-30); Chloride 105 mmol/L (98-107); Estimated CRCL calculation 63 ml/min; Estimated Glomerular Filt Rate 55; Glucose 113 mg/dL (65-110); Potassium 4.4 mmol/L (3.4-5.0); Sodium 137 mmol/L (137-145)
[2024-05-23 18:24] LABS: Troponin I 0.015 ng/mL (0.000-0.034)
== END 2024-05-23 18:40 | disposition home or self-care (01) ==
PROVIDERS: Emergency Provider Emergency Medicine; PCP Physician Assistant
DX: G45.4 Transient global amnesia (principal); I10 Essential (primary) hypertension; E66.9 Obesity, unspecified; Z68.33 Body mass index [BMI] 33.0-33.9, adult; Z79.82 Long term (current) use of aspirin; Z79.890 Hormone replacement therapy; Z79.02 Long term (current) use of antithrombotics/antiplatelets
CPT/HCPCS: 36415; 70450; 70496; 70498; 71045; 80053; 81003; 82948; 84484; 85025; 85610; 85730; 93005; 99284; Q9967

== ENCOUNTER 2024-06-04 08:34 | Outpatient (CLI) | payer MEDICARE, SELFPAY ==
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
== END 2024-06-04 08:35 | disposition home or self-care (01) ==
LOC: ANHNEURO 08:35
PROVIDERS: PCP Physician Assistant; Visit Provider Psychiatry & Neurology Neurology
DX: Z87.828 Personal history of other (healed) physical injury and trauma (principal)
CPT/HCPCS: 95816

== ENCOUNTER 2024-06-10 13:19 | Outpatient (CLI) | payer MEDICARE, SELFPAY ==
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
== END 2024-06-10 13:20 | disposition home or self-care (01) ==
LOC: GOSHIMG 13:20
PROVIDERS: PCP Physician Assistant; Visit Provider Psychiatry & Neurology Neurology
DX: Z87.828 Personal history of other (healed) physical injury and trauma (principal)
CPT/HCPCS: 70551

== ENCOUNTER 2024-12-31 08:11 | Outpatient (CLI) | payer MEDICARE, SELFPAY ==
--- NOTE | ~2024-12-31 | US_ITS ---
EXAMINATION: US thyroid DATE: 12/31/2024 08:41 INDICATION: Nontoxic thyroid nodule TECHNIQUE: Multiple ultrasound images of the thyroid were obtained. COMPARISON: None FINDINGS: The right thyroid lobe measures 4.7 x 1.4 x 2.0 cm. Within the right lobe of the thyroid gland is a 8.9 x 7.2 x 8.4 mm nodule: Composition - spongiform Echogenicity - hypoechoic (2) Shape - wider than tall Margin - smooth Echogenic foci - none. = TR2 not suspicious. Within the right lobe of the thyroid gland is a 7.4 x 5.7 x 5.2 mm nodule: Composition -solid or almost completely solid (2) Echogenicity -hypoechoic or isoechoic (1) Shape - wider than tall Margin - smooth Echogenic foci - none. = TR3 Mildly suspicious Greater than or equal to 1.5 cm: Follow-up Greater than or equal to 2.5 cm: FNA The left thyroid lobe measures 4.3 x 1.3 x 1.5 cm. Within the left lobe of the thyroid gland is a 9.0 x 6.6 x 7.4 mm nodule: Composition - spongiform Echogenicity -hyperechoic or isoechoic (1) Shape - wider than tall Margin - smooth Echogenic foci - none. = TR 1, benign. The isthmus measures 0.8cm in anterior to posterior dimension. There is otherwise normal echotexture and echogenicity throughout the remainder of the thyroid gland. No additional discrete nodules identified. Normal vascular flow is present. IMPRESSION: TR 3 nodule in the right lobe of the thyroid gland measuring 7.3 mm in greatest dimension. This nodule does not meet size criteria for either FNA or follow-up. TR 2 and TR 1 nodules detected bilaterally. Reviewed, dictated and finalized at location A.
--- NOTE | ~2024-12-31 | US_ITS ---
US right upper quadrant INDICATION: Gallstone. PROCEDURE: Realtime right upper abdominal ultrasound. COMPARISON: No prior studies for comparison. FINDINGS: The pancreas is normal without focal mass or pancreatic ductal dilation. Liver echotexture is increased, consistent with fatty infiltration. There is normal directional flow in the portal ve in. There is a gallstone. Common bile duct measures 5 mm. No sonographic Schaffer's sign. IMPRESSION: 1: Cholelithiasis. 2: Fatty infiltration of the liver. Reviewed, dictated and finalized at location B.
--- NOTE | ~2024-12-31 | US_ITS ---
EXAM: RENAL ULTRASOUND HISTORY: Hydronephrosis seen on life screen examination COMPARISON: None FINDINGS: RIGHT KIDNEY: 11.7 x 4.8 x 5.9 cm. The parenchyma of the right kidney is unremarkable in thickness and echogenicity. No hydronephrosis or renal calculi. LEFT KIDNEY: 12.5 x 5.0 x 6.2 cm Mild pelvocaliectasis is present, without zaina hydronephrosis. 8 mm nonobstructing calculus within the interpolar region of the left kidney. 7 mm nonobstructing calculus within the lower pole of the left kidney. The parenchyma of the left kidney is unremarkable in thickness and echogenicity. BLADDER: The bladder is minimally distended, and otherwise unremarkable. Interrogation of ureteral jets were not present on the submitted images. IMPRESSION: Mild pelvocaliectasis within the left kidney without zaina hydronephrosis. Two left-sided subcentimeter nonobstructing renal calculi. Reviewed, dictated and finalized at location A.
== END 2024-12-31 08:12 | disposition home or self-care (01) ==
LOC: GOSHIMG 08:11
PROVIDERS: PCP Physician Assistant; Visit Provider Physician Assistant
DX: E04.1 Nontoxic single thyroid nodule (principal); K80.20 Calculus of gallbladder without cholecystitis without obstruction; N13.30 Unspecified hydronephrosis
CPT/HCPCS: 76536; 76705; 76775

== ENCOUNTER 2025-02-24 15:16 | Outpatient (CLI) | payer MEDICARE, SELFPAY ==
--- NOTE | ~2025-02-24 | CT_ITS ---
Non-contrast CT scan of the Abdomen and Pelvis Clinical indication: Kidney stone Technique: 2.5 mm axial scans were obtained through the abdomen and pelvis without intravenous or or al contrast. Dose reduction technique was used on this scan by utilizing automated exposure control a nd iterative reconstruction technique. The dose-length product (DLP) was 700.07 mGy-cm. Findings: Images through the lung bases reveal 6 mm nodule along the right major fissure (axial imag e 6).. 6 mm nonobstructing right renal stone present. Nonobstructing left renal stones are present, largest measuring 4 mm. Probable central left renal cyst rather than hydronephrosis. No ureteral stones ident ified. The liver, spleen, pancreas, and adrenals appear normal. 2.1 cm calcified gallstone present. There is no aortic aneurysm. There is no evidence of bowel obstruction. Sigmoid diverticulosis noted. Images through the pelvis were performed. There is no evidence of ascites or lymphadenopathy. Urinary bladder unremarkable. No pelvic mass. Impression: Bilateral nonobstructing renal stones, as above. Suspected central left renal cyst versus possibly left hydronephrosis. No ureteral stone or hydroureter either side. Cholelithiasis. 6 mm nodule along the right major fissure in the right lower lobe. According to Fleischner Society cr iteria, for a low-risk patient, recommend follow-up CT in 6-12 months, then consider additional 18-[address]. For a high-risk patient, follow-up CT scans at both 6-12 months and 18-24 months are recom mended. Reviewed, dictated and finalized at [facility]. Impression: Bilateral nonobstructing renal stones, as above. Suspected central left renal cyst versus possibly left hydronephrosis. No ureteral stone or hydroureter either side. Cholelithiasis. 6 mm nodule along the right major fissure in the right lower lobe. According to Fleischner Society criteria, for a low-risk patient, recommend follow-up CT in 6-12 months, then consider additional 18-[address] For a high-risk patient, follow-up CT scans at both 6-12 months and 18-24 months are recommended.
--- NOTE | ~2025-02-24 | XR_ITS ---
Supine views of the abdomen Clinical history: Kidney stone Findings: Bowel gas pattern is nonspecific. No evidence for obstruction or free air. Bilateral renal stones are present, measuring up to 4 mm in maximum diameter. Osseous structures are intact. Impression: Small bilateral renal stones, as above. Reviewed, dictated and finalized at [facility]. Impression: Small bilateral renal stones, as above.
--- OUTSIDE RECORDS SUMMARY | 2025-02-24 15:23 | XMS_ITS | Patient Health Record ---
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 Name Role Phone LUTHER ÁLVAREZ Unavailable [phone] Daisha Chavarria Unavailable Unavailable Allergies No Known Allergies Reason For Referral No Information Medications Medication SIG (Take, Route, Frequency, Duration) Notes Start Date End Date Status Aspirin 81 MG Oral aspirin 81 MG Ch ewable TabletOriginal Medicationaspirin 81 MG Chewable Tablet 02/26/2021 Active Medrol Dosepak ORAL Medrol DosepakOr iginal MedicationMedrol Dosepak *Reorder from [employer] for eRx and Interaction Alerts* 10/03/2022 Active Vital Signs Height-cm 187.96 cm 02/24/2025 Weight-kg 112.49 kg 02/24/2025 Height 74.00 in 02/24/2025 Weight 248 lbs 02/24/2025 BMI 31.84 kg/m2 02/24/2025 Encounters Encounter Location Date Provider Diagnosis [facility] [address] [place] [address] [id number] 02/24/2025 LUTHER BOATENG [facility] [address] [place] [address] [id number] 05/20/2024 LUTHER BOATENG Tinea unguium B35.1 ; Acquired keratosis [keratoderma] palmaris et plantaris L85.1 ; Atherosclerosis of [place] arteries of extremities with intermittent claudication, bilateral legs I70.213 ; Pain in right foot M79.671 and Pain in left foot M79.672 [facility] [address] [place] [address] [id number] 07/29/2024 LUTHER SNOOK Tinea unguium B35.1 ; Acquired keratosis [keratoderma] palmaris et plantaris L85.1 ; Atherosclerosis of [place] arteries of extremities with intermittent claudication, bilateral legs I70.213 ; Pain in right foot M79.671 and Pain in left foot M79.672 [facility] [address] [place] [address] [id number] 09/30/2024 LUTHER SNOOK Tinea unguium B35.1 ; Pain in right toe(s) M79.674 ; Pain in left toe(s) M79.675 and Atherosclerosis of [place] arteries of extremities with intermittent claudication, bilateral legs I70.213 [facility] [address] [place] [address] [id number] 12/16/2024 LUTHER SNOOK Tinea unguium B35.1 ; Pain in right toe(s) M79.674 ; Pain in left toe(s) M79.675 and Atherosclerosis of [place] arteries of extremities with intermittent claudication, bilateral legs I70.213 Assessments Encounter Date Diagnosis (ICD Code) Assessment Notes Treatment Notes Treatment Clinical Notes Section Notes 05/20/2024 Tinea unguium (ICD-10 - B35.1) Nails 1-5 Bilateral were debrided extensively with nail nippers and emery board, reducing length and girth to pink healthy tissue with any subungual debris and necrotic tissue removed 05/20/2024 Acquired keratosis [keratoderma] palmaris et plantaris (ICD-10 - L85.1) A total of 1 corns or calluses, as described in the note above, were cut and pared utilizing a #15 blade 07/29/2024 Tinea unguium (ICD-10 - B35.1) Nails 1-5 Bilateral were debrided extensively with nail nippers and emery board, reducing length and girth to pink healthy tissue with any subungual debris and necrotic tissue removed 07/29/2024 Acquired keratosis [keratoderma] palmaris et plantaris (ICD-10 - L85.1) A total of 1 corns or calluses, as described in the note above, were cut and pared utilizing a #15 blade 09/30/2024 Tinea unguium (ICD-10 - B35.1) FUNGAL TOENAILS: Discussed various treatment options for fungal toenails including debridement, topical antifungals, oral antifungals, toenail avulsion, or toenail matrixectomy. NAIL DEBRIDEMENT: Nails 1-5 Bilateral were debrided extensively with nail nippers and emery board, reducing length and girth to pink healthy tissue with any subungual debris and necrotic tissue removed 09/30/2024 Pain in right toe(s) (ICD-10 - M79.674) 12/16/2024 Tinea unguium (ICD-10 - B35.1) FUNGAL TOENAILS: Discussed various treatment options for fungal toenails including debridement, topical antifungals, oral antifungals, toenail avulsion, or toenail matrixectomy. NAIL DEBRIDEMENT: Nails 1-5 Bilateral were debrided extensively with nail nippers and emery board, reducing length and girth to pink healthy tissue with any subungual debris and necrotic tissue removed 12/16/2024 Pain in right toe(s) (ICD-10 - M79.674) 12/16/2024 Pain in left toe(s) (ICD-10 - M79.675) 09/30/2024 Pain in left toe(s) (ICD-10 - M79.675) 07/29/2024 Atherosclerosis of [place] arteries of extremities with intermittent claudication, bilateral legs (ICD-10 - I70.213) 05/20/2024 Atherosclerosis of [place] arteries of extremities with intermittent claudication, bilateral legs (ICD-10 - I70.213) 05/20/2024 Pain in right foot (ICD-10 - M79.671) 07/29/2024 Pain in right foot (ICD-10 - M79.671) 09/30/2024 Atherosclerosis of [place] arteries of extremities with intermittent claudication, bilateral legs (ICD-10 - I70.213) 12/16/2024 Atherosclerosis of [place] arteries of extremities with intermittent claudication, bilateral legs (ICD-10 - I70.213) 07/29/2024 Pain in left foot (ICD-10 - M79.672) 05/20/2024 Pain in left foot (ICD-10 - M79.672) Plan Of Treatment Next Appt Details Provider Name:LUTHER BOATENG, 02:20:00 PM, [address], [facility], [place], [place], [phone], Insurance Providers Payer Name Payer Address Payer Phone Subscriber Number Group Number Insured Name Patient Relationship to Insured Coverage Start Date Coverage End Date [employer] Medicare[employer] ([place]) [address] [place], [place] [phone] [phone] [id number] IRIS GODDARD Self - patient is the insured
--- OUTSIDE RECORDS SUMMARY | 2025-02-24 15:24 | XMS_ITS | Data Portability ---
Author Organization [facility] FERNANDAMarky [facility] Address [address] [place] [address] Care Team Providers Care Equipment Installer Name Role Phone ZULEIKA BERMUDEZ Primary Care Provider Unavailab le Assessment No assessment recorded. Plan of Treatment Reminders Order Date Submit Date Provider Last Modified By Organization Details Last Modified Time Details Appointments NURSE ONLY 2024 08:30A M SHAZIA Petersen Not available Not available Not available ANY 15 2024 09:00A M SHAZIA Petersen Not available Not available Not available Lab HbA1c (hemoglob in A1c), blood 2024 025 [email or web address] [facility], [address], [place], [address], 12/16/2024 10:58:53 lipid panel, serum 2024 025 [email or web address] [facility], [address], [place], [address], 12/16/2024 10:58:53 CBC w/ auto diff 2024 025 [email or web address] [facility], [address], [place], [address], 12/16/2024 10:58:53 BMP, serum or plasma 2024 025 [email or web address] [facility], [address], [place], [address], 12/16/2024 10:58:53 hepatic function panel, serum 2024 025 [email or web address] [facility], [address], [address], [place], [address], 12/16/2024 10:58:53 testoster one, total, serum 2024 025 [email or web address] [facility], [address], [address], [place], [address], 12/16/2024 10:58:53 PSA, serum or plasma 2024 025 [email or web address] [facility], [address], [place], [address], 12/16/2024 10:58:53 TSH + free T4, serum 2024 [email or web address] [facility], [address], [address], [place], [address], 12/16/2024 10:58:53 Referral None recorded. Procedures None recorded. Surgeries None recorded. Imaging US, thyroid [address] (Imaging), [address] [facility] [address], [place], [address], 12/24/2024 14:30:03 Medication Orders testoster one cypionate 200 mg/mL intramusc ular oil 2024 025 [email or web address] [id number], [address] [address] [facility], [place], [place], [id number], 01/28/2025 13:21:00 testoster one cypionate 200 mg/mL intramusc ular oil 2024 025 Not available 12/24/2024 13:37:49 testoster one cypionate 200 mg/mL intramusc ular oil 2024 025 Not available 11/28/2024 17:24:14 testoster one cypionate 200 mg/mL intramusc ular oil 2024 025 [email or web address] [facility] #[id number], [address] , [place], [place], [id number], 10/25/2024 12:15:04 Patient TargetsNo targets recorded. Patient Instructions Encounter Date Encounter Id Patient Instructions Last Modified By Organization Details Last Modified Time 12/16/2024 [id number] A healthy lifestyle: care instructions Not available 12/16/2024 10:58:53 Reason for Referral None Reported. Results Created Date Observation Date Name Description Value Unit Range Abnormal Flag Note LastModifiedBy Organization Detail LastModifiedTime 01/01/20 25 12/31/2024 US, gallb ladde r No observ ation record ed. [facility] (Imaging) [address], [place], [address], 01/10/2025 12:37:48 01/01/20 25 12/31/2024 US, thyro id No observ ation record ed. [facility] [address] [place] [address] Dr [address], [place], [address], 01/10/2025 12:37:48 01/11/20 25 12/31/2024 US, renal No observ ation record ed. [facility] [address] [place] [address] [address], [place], [address], 01/10/2025 12:37:49 Result Notes None recorded. Problems Name Problem SNOMED Code Status Onset Date Resolution Date Notes Provider Name and Address Organization Details Recorded Time Male hypogonadis m 16191448 Active 2023 Jerilyn ferris, [place] - [facility] 4 16:50:10 Insomnia 745668497 Active 2023 SHAZIA Petersen Attn: Silva g,[address] [facility], [place], [address], [place] [facility] 4 09:45:39 Hypothyroid ism 84785413 Active 2023 Jerilyn Ham null, [place] - [facility] 4 16:50:02 Benign essential hypertensio n 5007971 Active 2023 Jerilynjesica Ham null, [place] - [facility] 4 16:50:00 History of placement of stent for coronary artery disease 358770672 Active 2023 SHAZIA Petersen Attn: Accountin g,[address] [facility], [place], [address], [place] [facility] 4 09:45:43 Coronary atheroscler osis 200386673 Active 2023 SHAZIA Petersen Attn: Accountin g,[address] [facility], [place], [address], [place] [facility] 4 09:45:45 Body mass index 30+ - obesity 639981608 Active 2023 SHAZIA Petersen Attn: Accountin g,[address] [facility], [place], [address], [place] [facility] 5 10:43:23 Impaired fasting glycemia 276661864 Active 2023 SHAZIA Petersen Attn: Accountin g,[address] [facility], [place], [address], [place] [facility] 4 11:09:06 Long-term drug therapy Active 2023 SHAZIA Petersen Attn: Accountin g,[address] [facility], [place], [address], [place] [facility] 4 11:09:10 Obesity 571513206 Active 2023 SHAZIA Petersen Attn: Accountin g,[address] [facility], [place], [address], [place] [facility] 4 11:09:15 Obese class I 4151605025355 07 Active 2024 SHAZIA Petersen Attn: Silva hutson,[address], [place], [address], [facility] 10:43:08 Prediabetes 755195167 Active 2024 SHAZIA Petersen Attn: Silva hutson,[address] [facility], [place], [address], [facility] 17:50:04 Thyroid nodule 850006003 Active 2024 SHAZIA Petersen Attn: Silva g,[address] [facility], [place], [address], [facility] 17:51:01 Problem Notes None recorded. Procedures Surgical History Date Name Laterality Status Provider Name and Address Organization Details Recorded Time Heart Surgery completed Sophia Jansen MA [facility] 10/25/2023 12:57:42 Imaging Results None recorded. Procedure Notes None recorded. Medical Equipment None Reported. Allergies No known drug allergies Medications Name Sig Start Date Stop Date Status Note LastModified by Organization Details LastModified Time losartan 50 mg tablet Take 1 tablet every day by oral route. active Not Available Not Available No t Available amoxicill in 500 mg capsule TAKE 1 CAPSULE BY MOUTH EVERY 8 HOURS UNTIL ALL TAKEN 10/24 completed Not Available Not Available Not Available atorvasta tin 80 mg tablet Take 1 tablet every day by oral route for 90 days. active Not Available Not Available No t Available azithromy yeison 250 mg tablet 10/24 completed Not Available Not Available Not Available levothyro xine 88 mcg tablet TAKE 1 TABLET BY MOUTH DAILY 2024 active Not Available Not Available Not Avai lable erythromy yeison 5 mg/gram (0.5 %) eye ointment APPLY 1 CM RIBBON INTO THE LOWER CONJUNCT IVAL SACS IN THE AFFECTED EYES THREE TIMES DAILY FOR 5 TO 7 DAYS 10/24 completed Not Available Not Available Not Available candesart an 16 mg tablet Take 1 tablet every day by oral route for 90 days. 12/16 completed pt states that he has a 1 refill left and then he'll be switchin g to Losartan 50mg Not Available Not Available Not Available mupirocin 2 % topical ointment APPLY TOPICALL Y TO THE AFFECTED AREA INTRANAS AL TWICE DAILY NEEDED 06/17 completed Not Available Not Available Not Available testoster one cypionate 200 mg/mL intramusc ular oil ADMINIST ER 1.5 ML IN THE MUSCLE EVERY 4 WEEKS. DISCARD 28 DAYS AFTER FIRST PUNCTURE 2024 active Not Available Not Available Not Avai lable amoxicill in 875 mg-potass ium clavulana te 125 mg tablet TAKE 1 TABLET BY MOUTH TWICE DAILY 10/24 completed Not Available Not Available Not Available eszopiclo ne 1 mg tablet TAKE 1 TABLET BY MOUTH AT SLEEP LAB IF NEEDED AT START OF STUDY. DO NOT TAKE AT HOME. REPEAT IN 15 MINUTES IF NEEDED 10/24 completed Not Available Not Available Not Available chlorhexi dine gluconate 0.12 % mouthwash RINSE AND SPIT 5 ML 2-3 TIMES DAILY FOR 7 DAYS 10/24 completed Not Available Not Available Not Available levothyro xine 10/24 completed 0.088 mg 1 tab Not Available Not Available Not Available Brilinta 90 mg tablet TAKE 1 TABLET BY MOUTH EVERY 12 HOURS active on monday he will no longer be on this Not Available Not Available Not Available Vitals Date Recorded Body height Provider Name an d Address Organization Details Last Updated DateTime 10/25/2024 185.42 cm Eloisa Hernández LPN [facility] 10/26/19 25 09:40:04 Date Recorded Systolic And Diastolic Systolic And Diastolic Provider Name and Address Organization Details Last Updated DateTime 12/16/2024 120/80 mm[Hg] 118/80 mm[Hg] SHAZIA Petersen Attn: Accounting,[address] [place], [address], [facility] 12/16/2024 10:57:53 Date Recorded Body height Body mass index (BMI) Body weight Respiratory rate Oxygen saturation Oxygen saturation in Arterial blood by Pulse oximetry Heart rate Systolic And Diastolic Systolic And Diastolic Provider Name and Address Organization Details Last Updated DateTime 185.42 cm 33.4 kg/m2 410015. 87 g 18 /min 96 % 96 % 71 /min 136/84 mm[Hg] 152/90 mm[Hg] Sophia Jansen MA [facility] 10:36:54 Social History Question Answer Notes LastModified by Organizat ion Details LastModified Time Tobacco Smoking Status Never Smoker Sophia Jansen MA null, [facility] 10/25/2023 09:26:44 Are You Blind Or Do You Have Difficulty Seeing? No Glasses Information not available 10/25/2023 What Is Your Level Of Caffeine Consumption? Occasional Coffee Information not available 10/25/2023 In The 14 Days Before Symptom Onset, Have You Had Close Contact With A Laboratory-confir med COVID-19 While That Case Was Ill? No Information not available 10/25/2023 In The 14 Days Before Symptom Onset, Have You Had Close Contact With A Person Who Is Under Investigation For COVID-19 While That Person Was Ill? No Information not available 10/25/2023 Have You Been To An Area Known To Be High Risk For COVID-19? No Information not available 10/25/2023 Are You Deaf Or Do You Have Serious Difficulty Hearing? No Information not available 10/25/2023 What Type Of Diet Are You Following? REGULAR Information not available 10/25/2023 Are There Any Guns Present In Your Home? No Information not available 10/25/2023 What Was The Date Of Your Most Recent Tobacco Screening? 12/16/2024 Information not available 12/16/2024 Do You Use Your Seat Belt Or Car Seat Routinely? Yes Information not available 10/25/2023 Do You Have Smoke And Carbon Monoxide Detectors In Your Home? Yes Information not available 10/25/2023 Do You Use Sunscreen Routinely? No Information not available 10/25/2023 Has Tobacco Cessation Counseling Been Provided? No Information not available 06/17/2024 Sex: Male Functional Status Question Answer Note LastModified by Organizat ion Details LastModified Time Do you use any illicit or recreational drugs? No Information not available 10/25/2023 Do you or have you ever used any other forms of tobacco or nicotine? No Information not available 10/25/2023 What is your level of alcohol consumption? Occasional once in a while Information not available 10/25/2023 Are you able to care for yourself? Yes Information not available 10/25/2023 What is your exercise level? Occasional Information not available 10/25/2023 Mental Status None recorded. Family History Relationship Description Onset Age of this Age Resolved Age Notes LastModified by Organization Details LastModified Time Father Coronary arterioscler osis tcarterma Not available 2023 12:58:13 Father Diabetes mellitus tcarterma Not available 2023 12:58:19 Father Heart disease tcarterma Not available 2023 12:58:29 Father Hypertensive disorder tcarterma Not available 2023 12:58:42 Father Hypercholest erolemia tcarterma Not available 2023 12:58:53 Brother Coronary arterioscler osis tcarterma Not available 2023 12:58:13 Brother Heart disease tcarterma Not available 2023 12:58:29 Brother Hypertensive disorder tcarterma Not available 2023 12:58:42 Brother Hypercholest erolemia tcarterma Not available 2023 12:58:53 Medical History Condition Response Coronary Artery Disease N Other N High Blood Pressure Y Atrial Fibrillation N Kidney or Bladder Problems N Thyroid Problems Y GI Problems N Depression N COPD N Blood Clots N Skin Problems N Anemia N Heart Attack (NH) Y Anxiety Disorder N Diabetes N Muscle, Joint, or Bone Problems N Seizures/Epilepsy N Acid Reflux (GERD) N Cancer N Stroke N Asthma N Allergies N High Cholesterol N Hepatitis N Liver Disease N Headaches N Heart Failure N Osteoporosis N Immunizations Vaccine Type Date Status Note Provider Nam e and Address Organization Details Recorded Time COVID-19, mRNA, LNP-S, PF, 100 mcg/0.5mL dose or 50 mcg/0.25mL dose 1 completed CHELSEA Anderson, [place] - [facility] 05/21/2024 17:12:52 COVID-19, mRNA, LNP-S, PF, 100 mcg/0.5mL dose or 50 mcg/0.25mL dose 1 completed Sophia Jansen [place] null, [place] [facility] 05/21/2024 17:12:52 COVID-19, mRNA, LNP-S, PF, 100 mcg/0.5mL dose or 50 mcg/0.25mL dose 2 completed CHELSEA [place], [place] [facility] 05/21/2024 17:12:52 COVID-19, mRNA, LNP-S, PF, 100 mcg/0.5mL dose or 50 mcg/0.25mL dose 1 completed CHELSEA [place], [place] [facility] 05/21/2024 17:12:52 Pneumococcal conjugate PCV 13 1 completed CHELSEA [place], [place] [facility] 05/21/2024 17:12:52 influenza, unspecified formulation 4 completed CHELSEA [place], [place] [facility] 06/25/2024 10:54:20 COVID-19, mRNA, LNP-S, PF, 50 mcg/0.5 mL 4 completed Not Available [facility] 01/28/2025 09:23:42 Past Encounters Encounter ID Performer Location Encounter Start Date Encounter Closed Date Diagnosis/Indication Diagnosis SNOMED-CT Code Diagnosis ICD10 Code Diagnosis Note [id number] Renzo Luu MD [facility] [address] [place] [address] 10/25/2023 09:19:49 10/25/2023 10:02:22 Coronary atherosclerosis 620725703 I25.[address] Tenorio, saw them last week. cholestero l testing was favorable with them. On high dose atorvastat in 80mg daily. History of placement of stent for coronary artery disease 528501694 Z95.5 x1 stent. on brilinta 90mg bid. Benign ess ential hypertension 2596182 I10 stable on candesarta n 16mg daily. Hypothyroidism 28321846 E03.9 stable on thyroid supplement levo 88mcg daily.; due for TFTs in apr. current labs pending. Male hypogonadism 080252 06 E29.1 refill testostero ne injection rx Long-term drug therapy 695596249 Z79.899 next lab set due in apr before appt [id number] [facility] [address] [place] [address] 10/27/2023 10:58:16 11/01/2023 12:26:41 Male hypogonadism 41716958 E29.1 refill testostero ne injection rx [id number] Renzo Luu MD ON LICENSE OF [facility] [place] [address] [place] [address] 11/28/2023 10:05:51 11/28/2023 10:34:23 Male hypogonadism 28173923 E29.1 refill testostero ne injection rx [id number] Renzo Luu MD ON LICENSE OF [facility] [place] [address] [place] [address] 12/29/2023 09:53:13 12/29/2023 10:16:17 Male hypogonadism 53873224 E29.1 refill testostero ne injection rx [id number] Renzo Luu MD ON LICENSE OF [facility] [place] [address] [place] [address] 01/26/2024 09:57:13 01/26/2024 11:56:14 Male hypogonadism 02240723 E29.1 refill testostero ne injection rx [id number] Renzo Luu MD ON LICENSE OF [facility] [place] [address] [place] [address] 02/23/2024 09:35:47 02/23/2024 09:46:30 Male hypogonadism 13747480 E29.1 refill testostero ne injection rx [id number] Renzo Luu MD ON LICENSE OF [facility] [place] [address] [place] [address] 03/22/2024 09:24:31 03/22/2024 13:49:54 Male hypogonadism 50099671 E29.1 refill testostero ne injection rx [id number] Renzo Luu MD ON LICENSE OF [facility] [place] [address] [place] [address] 04/24/2024 09:21:02 04/24/2024 12:54:41 Male hypogonadism 71829829 E29.1 refill testostero ne injection rx [id number] Renzo Luu MD ON LICENSE OF [facility] [place] [address] [place] [address] 05/23/2024 09:40:20 05/23/2024 11:25:36 Male hypogonadism 85556112 E29.1 refill testostero ne injection rx [id number] Renzo Luu MD ON LICENSE OF [facility] [place] [address] [place] [address] 06/17/2024 10:35:48 06/17/2024 12:21:04 Body mass index 30+ - obesity 167177571 Z68.32 bmi 32.6 Obesity 614149934 E66.9 discussed healthy diet, exercise, controllin g carbohydra bozena and added sugars in the diet Coronary atherosclerosis 050164465 I25.[address] Tenorio, saw them last week. cholestero l testing was favorable with them. On high dose atorvastat in 80mg daily. Repeat fasting lipids in November History of placement of stent for coronary artery disease 847913769 Z95.5 x1 stent. on brilinta 90mg bid. Benign ess ential hypertension 4740276 I10 stable on candesarta n 16mg daily. Hypothyroidism 81278036 E03.9 stable on thyroid supplement levo 88mcg daily.; repeat thyroid function testing in November Male hypogonadism 452164 06 E29.1 Patient is stable on monthly testostero ne injections . PSA level remains normal on each lab check. Repeat labs again in November Long-term drug therapy 366961398 Z79.899 CBC, BMP and liver function panel order for December 01, 2024 Impaired f asting glycemia 131435025 R73.01 Check A1c on next set of labs fasting glucose was 103 on most recent labs. Adult [facility] th examination 550341540 Z00.01 Annual Medicare complete wellness exam completed [id number] Renzo Luu MD ON LICENSE OF [facility] [place] [address] [place] [address] 06/20/2024 09:43:22 06/24/2024 16:20:05 Male hypogonadism 73700807 E29.1 refill testostero ne injection rx [id number] Renzo Luu MD ON LICENSE OF [facility] [place] [address] [place] [address] 07/30/2024 09:30:07 07/30/2024 10:46:59 Male hypogonadism 81472182 E29.1 refill testostero ne injection rx [id number] Renzo Luu MD ON LICENSE OF [facility] [place] [address] [place] [address] 08/28/2024 09:25:03 08/28/2024 09:58:48 Male hypogonadism 07137280 E29.1 refill testostero ne injection rx [id number] Renzo Luu MD ON LICENSE OF [facility] [place] [address] [place] [address] 09/27/2024 09:12:32 09/27/2024 10:14:36 Male hypogonadism 66219653 E29.1 refill testostero ne injection rx [id number] Renzo Luu MD ON LICENSE OF [facility] [place] [address] [place] [address] 10/25/2024 09:13:35 10/25/2024 12:12:50 Male hypogonadism 94315171 E29.1 refill testostero ne injection rx [id number] Renzo Luu MD ON LICENSE OF [facility] [place] [address] [place] [address] 11/25/2024 10:00:53 11/25/2024 12:05:08 Male hypogonadism 94397359 E29.1 refill testostero ne injection rx [id number] Renzo Luu MD ON LICENSE OF [facility] [place] [address] [place] [address] 12/16/2024 10:22:53 12/16/2024 11:01:10 Obese class I 3049536257 24927 E66.811 discussed healthy diet, exercise, controllin g carbohydra bozena and added sugars in the diet Body mass index 30+ - obesity 591731438 Z68.33 bmi 33.4 Coronary atherosclerosis 746440427 I25.[address] Tenorio, saw them last month. On high dose atorvastat in 80mg daily. Due for fasting lipids again in May History of placement of stent for coronary artery disease 528617953 Z95.5 x1 stent. We will be stopping Brilinta soon due to end of treatment course Benign ess ential hypertension 0926159 I10 stable on candesarta n 16mg daily. Impaired f asting glycemia 072146205 R73.01 Next A1c ordered for May Hypothyroidism 34158818 E03.9 stable on thyroid supplement levo 88mcg daily.; Male hypogonadism 569380 06 E29.1 Patient is stable on monthly testostero ne injections . PSA level remains normal on each lab check. Repeat testostero ne and PSA again in May. Current testostero ne is 544 Long-term drug therapy 085298126 Z79.899 CBC liver and basic metabolic panel ordered for May Thyroid nodule 101070936 E04.1 Check a thyroid ultrasound to evaluate for thyroid nodule that a lifeline screening ultrasound revealed Prediabetes 428068784 R7 3.03 6.1% A1c on the last labs. The fasting glucose was actually normal on this 1 at 97 however continuing to follow the prediabete s. [id number] Renzo Luu MD ON LICENSE OF [facility] [employer] [address] [place] [address] 12/24/2024 09:19:18 12/24/2024 12:37:51 Male hypogonadism 11530509 E29.1 Patient is stable on monthly testostero ne injections . PSA level remains normal on each lab check. Repeat labs again in November Renzo Luu MD ON LICENSE OF [facility] [employer] [address] [place] [address] 01/28/2025 09:23:07 01/28/2025 10:21:33 Male hypogonadism 32855675 E29.1 Patient is stable on monthly testostero ne injections . PSA level remains normal on each lab check. Repeat labs again in November Health Concerns Section Related Observation LastModified by Organization Detai ls LastModified Time None Recorded Concern Status LastModified by Organization Details LastModified Time None Recorded Advance Directives Directive None Recorded Payers Insurance Date Sequence Insurance Name Policy Number Policy Harris Covered Member ID Harris Member ID Guarantor Name 10/25/2023 2 [facility] Charli Mak [id number] Charli Mak 01/25/2025 1 [facility] (MEDICARE REPLACEMENT/A DVANTAGE - PPO) [id number] Charli Mak [id number] Charli Mak 10/25/2023 1 [facility] Charli Mak [id number] Charli Mak Notes Date Note Type Note Provider Name and Address Organization Details Recorded Time 12/16/2024 text/html Coronary Artery Disease F/UReported bypatient.Notes:pt is s/p 1 stent. Did get cardiac rehab therapy. Seeing consultant rn.Hyperl ipidemiaReported bypatient.Notes:sta ble on atorvastatin 80mg daily. UTD on labs.HypertensionRe ported bypatient.Notes:pt is taking candesartan 16mg daily. no complaints. feeling well.ThyroidReporte d bypatient.Notes:sta ble on levothyroxine 88mcg daily. labs UTD Male hypogonadism on testosterone supplement monthly. Dx with a transient global amnesia at the hospital recently in May. EEG ordered by neurology and was normal. MRI brain completed and we were copied on that. Dr. Orr. Patient reports that he had a lifeline screening and they found a thyroid nodule that needs further evaluation. SHAZIA Petersen Attn: Accounting,[address] [facility], [place], [address], [place] 01/05/2025 17:51:33
== END 2025-02-24 15:17 | disposition home or self-care (01) ==
PROVIDERS: PCP Physician Assistant; Visit Provider Urology
DX: N20.0 Calculus of kidney (principal)
CPT/HCPCS: 74018; 74176